=== PATIENT | male | born 1955 | race Caucasian/White ===

== ENCOUNTER 2017-03-07 06:47 | Day surgery (SDC) | payer BC ==
[~2017-03-07 06:47] MED LIST: RINGERS SOLUTION,LACTATED 1,000 ML IV PRN; ceFAZolin SODIUM 1 GM VIAL IV PRN
[2017-03-07] MEDS ORDERED: RINGERS SOLUTION,LACTATED 1,000 ML IV ONE (10:00)
[2017-03-07] MEDS ORDERED: BUPIVACAINE HCL/EPINEPHRINE 50 ML VIAL IJ ONE (10:05)
[2017-03-07] MEDS ORDERED: PROMETHAZINE HCL 12.5 MG in DEXTROSE 5 % IN WATER 50 ML IV PRN ×2 (11:04)
[2017-03-07] MEDS ORDERED: NALOXONE HCL 0.4 MG/ML VIAL IV PRN (11:04)
[2017-03-07] MEDS ORDERED: HYDROmorphone HCL 2 MG/ML VIAL IV PRN (11:04)
[2017-03-07] MEDS ORDERED: diphenhydrAMINE HCL 50 MG/ML VIAL IV PRN (11:04)
[2017-03-07] MEDS ORDERED: ONDANSETRON HCL/PF 2 MG/ML VIAL IV PRN (11:04)
--- NOTE | 2017-03-07 11:12 | OR ---
Operative Report - Dictated Report Narrative: Date: 03/07/2017 Physician: Jordy Alvarado M.D. Decorating Kiln Operator: Rom Patton PA-C Preoperative diagnosis: 1. Right type V acromioclavicular separation 2. Encounter for retained hardware removal Postoperative diagnosis: 1. Right type V acromioclavicular separation 2. Encounter for retained hardware removal Procedure: Removal of deep implant right clavicle Anesthesia: General plus local Complications: None Estimated blood loss: Minimal Specimens: None Retained implants: None Drains: None Indications: Benedict Is a 61 year-old male who underwent open reduction and internal fixation of a type V acromioclavicular separation with suture repair and placement of a hook plate on 10/09/2016. He presents now for plate removal to prevent erosion of the plate through the acromion. The risks, benefits, and alternatives were discussed in clinic. The risks being , bleeding, infection, blood clots, nerve, tendon, ligament, blood vessel injury, persistent pain, arthrosis, stiffness, need for prolonged therapy, need for additional procedures, and persistent symptoms. Consent was obtained in the clinic. Procedure: After marking the correct extremity in the preoperative holding area, a timeout was performed in the operating room. IV antibiotics consisting of 2 g of Ancef were administered prior to the procedure. A general anesthetic was induced by the nurse inspector final assembly conveyor line. This was in the supine position, then the patient was transitioned to a lazy beachchair position with all bony prominences well-padded , head in neutral, the nonoperative arm well supported, and the legs padded with SCDs in place. The operative shoulder was then prepped and draped in a standard sterile fashion. Attention was turned to his previous surgical incision which was incised over a length of approximately 7 cm directly over the plate. Electrocautery was carried down through the subcutaneous tissue to the level of the plate. The plate and all 4 screw heads were exposed. The 4 screws were removed followed by the plate without difficulty. There was no change in position of the clavicle or before meals joint following removal of the plate. We confirmed removal of all implants with a C-arm. The wounds were thoroughly irrigated. 0 Vicryl was utilized in order to repair the deep fascia. 3-0 Vicryl was placed in the subcutaneous tissue. Skin was closed with a 3-0 monocryl in a running subcuticular fashion. Steri-strips were placed and the wound was dressed with xeroform, 4x4s, and tegaderm. All sponge , needle, blade, and instrument counts were correct prior to closing the wounds. The patient was awoken and transferred to the postanesthesia care unit in stable condition.
[2017-03-07 12:40] VITALS: BP 152/77
== END 2017-03-07 06:48 | disposition home or self-care (01) ==
LOC: AMB 06:47
PROVIDERS: ATTEND Orthopaedic Surgery
PROC: 0PP904Z Removal of Internal Fixation Device from Right Clavicle, Open Approach (ICD-10-PCS; principal; 2017-03-07 08:00)
DX: T84.84XA Pain due to internal orthopedic prosthetic devices, implants and grafts, initial encounter (principal); M25.511 Pain in right shoulder; E03.9 Hypothyroidism, unspecified; F41.9 Anxiety disorder, unspecified; F32.9 Major depressive disorder, single episode, unspecified; Z68.27 Body mass index [BMI] 27.0-27.9, adult